=== PATIENT | female | born 1970 | race Caucasian/White ===

== ENCOUNTER 2016-12-28 15:05 | Inpatient (IN) | payer MEDICARE, MEDICAID ==
[~2016-12-28] VITALS: Ht 154.9 cm; Wt 49.4 kg
[2016-12-29 13:30] VITALS: BP 96/65
[2016-12-29] MEDS ORDERED: Z GUARD REMEDY PASTE 57 GM TUBE TOP PRN (13:45)
[2016-12-29] MEDS ORDERED: LACT-215 PO (13:53)
[2016-12-29] MEDS ORDERED: FOLI1TAB16 PO (13:53)
[2016-12-29] MEDS ORDERED: MAG30ORA2 PO (13:53)
[2016-12-29] MEDS ORDERED: LEVA1.257 NEB (13:53)
[2016-12-29] MEDS ORDERED: CALC1SOL2 PO (13:53)
[2016-12-29] MEDS ORDERED: METR-105 PO (13:53)
[2016-12-29] MEDS ORDERED: ACET-73 PO (13:53)
[2016-12-29] MEDS ORDERED: ENOX40DI9 SQ (13:53)
[2016-12-29] MEDS ORDERED: LORA1TAB PO (13:53)
[2016-12-29] MEDS ORDERED: THIA100T13 PO (13:53)
[2016-12-29 16:00] VITALS: BP 100/69
[2016-12-29] MEDS ORDERED: LORAZEPAM 1 MG TABLET PO PRN (16:45)
[2016-12-29] MEDS ORDERED: MAG HYDROX/AL HYDROX/SIMETH 30 ML LIQUID UDC PO PRN (16:45)
[2016-12-29] MEDS ORDERED: LEVALBUTEROL HCL 1.25 MG/0.5 ML NEB NEB PRN (16:45)
[2016-12-29] MEDS ORDERED: LEVALBUTEROL HCL NEB 0.63 MG/3 ML NEBU NEB PRN (17:15)
[2016-12-29] MEDS: BOOST GLUCOSE CONTROL 237 ML LIQUID (VANILLA) PO SCH (17:19)
--- NOTE | 2016-12-29 18:48 | NUR ---
Pt. received from [facility] on 1400. pt vitals stable. pt ambulates with assist. goes to the bathroom on his own. On admission assessment done. mrsa swab sent to the lab and awaiting results. no signs of acute distress. seen by doctor. will continue to evaluate.
[2016-12-29 20:32] VITALS: BP 100/71
[2016-12-29] MEDS: METRONIDAZOLE 500 MG TABLET PO SCH (21:13)
[2016-12-29] MEDS: ENOXAPARIN SODIUM 40 MG/0.4 ML DISP.SYRIN SQ SCH (21:15)
[2016-12-30] MEDS: METRONIDAZOLE 500 MG TABLET PO SCH ×3 (06:44→21:00)
[2016-12-30 07:47] LABS: CREATININE 0.8 mg/dL (0.6-1.3); MAGNESIUM 1.7 mg/dL (1.8-2.4); PHOSPHOROUS 6.3 mg/dL (2.5-4.9); POTASSIUM 3.3 mmol/L (3.5-5.1)
[2016-12-30 08:00] VITALS: BP 96/67
[2016-12-30] MEDS: BOOST GLUCOSE CONTROL 237 ML LIQUID (VANILLA) PO SCH ×2 (08:00→15:02)
[2016-12-30 08:20] LABS: BASOPHILS # (AUTO) 0.1 K/uL (0.0-8.0); BASOPHILS % (AUTO) 0.5 % (0.0-2.0); EOSINOPHILS # (AUTO) 0.2 K/uL (0.0-0.7); EOSINOPHILS % (AUTO) 1.4 % (0.0-7.0); HEMATOCRIT 32.8 % (37-47); HEMOGLOBIN 10.7 G/DL (12.0-16.0); LYMPHOCYTES % (AUTO) 11.7 % (20.5-51.5); MEAN CORPUSCULAR HEMOGLOBIN 32.8 UUG (27.0-31.0); MEAN CORPUSCULAR HGB CONC 33 g/dL (32.0-37.0); MEAN CORPUSCULAR VOLUME 100.2 FL (81.0-99.0); MONOCYTES # (AUTO) 1.1 K/UL (0.1-1.30); MONOCYTES % (AUTO) 6.7 % (0.0-11.0); NEUTROPHILS # (AUTO) 13.3 K/UL (1.8-8.9); NEUTROPHILS % (AUTO) 79.7 % (38.5-71.5); PLATELET COUNT (AUTO) 570 K/UL (150-450); RED BLOOD CELL COUNT(AUTO) 3.27 MIL/UL (4.2-5.4); WHITE BLOOD COUNT (AUTO) 16.7 K/UL (4.0-11.2)
[2016-12-30] MEDS: THIAMINE HCL 100 MG TABLET PO SCH (11:37)
[2016-12-30] MEDS: FOLIC ACID 1 MG TABLET PO SCH (11:37)
[2016-12-30] MEDS: CALCITRIOL 0.25 MCG CAPSULE PO SCH (11:38)
[2016-12-30 12:34] LABS: BAND % (MANUAL) 3 % (0-10); EOSINOPHILS % (MANUAL) 1 % (0-8); LYMPHOCYTES % (MANUAL) 11 % (20-40); MONOCYTES % (MANUAL) 5 % (2-10); NEUTROPHILS % (MANUAL) 80 % (42-75)
[2016-12-30 20:37] VITALS: BP 107/73
[2016-12-30] MEDS: ENOXAPARIN SODIUM 40 MG/0.4 ML DISP.SYRIN SQ SCH (20:43)
[2016-12-30] MEDS: ACETAMINOPHEN ES 500 MG TABLET PO PRN (21:49)
[2016-12-31] MEDS: METRONIDAZOLE 500 MG TABLET PO SCH ×3 (06:46→21:36)
[2016-12-31] MEDS: BOOST GLUCOSE CONTROL 237 ML LIQUID (VANILLA) PO SCH ×3 (08:00→17:00)
--- NOTE | 2016-12-31 08:00 | NUR ---
Received patient up in bed, awake, verbally responsive, coherent, not in any form of acute distress. No complain of pain or any discomfort. Environmental check for safety done. Call light placed within reach.
[2016-12-31] MEDS: THIAMINE HCL 100 MG TABLET PO SCH (08:20)
[2016-12-31] MEDS: CALCITRIOL 0.25 MCG CAPSULE PO SCH (08:21)
[2016-12-31] MEDS: FOLIC ACID 1 MG TABLET PO SCH (08:21)
--- NOTE | 2016-12-31 13:00 | NUR ---
Notified Dr. Duffy regarding positive result of MRSA of nares with order to start bactroban Q12hrs x 5 days. Order carried out. Patient made aware.
--- NOTE | 2016-12-31 19:00 | NUR ---
Patient remains alert, verbally responsive, coherent, afebrile, not in any form of acute distress. She denies any pain or discomfort. Assisted to her needs. Call light placed within reach. Endorsed to tube machine operator nurse accordingly.
--- NOTE | 2016-12-31 20:03 | NUR ---
Bathroom light not functioning properly in patients room. Engineering called. Patient refuses to relocate to a new room stating "I don't want to move to another room just because my light isn't working right. There's enough light for what I need to do." Will endorse to morning shift. Will continue to monitor.
[2016-12-31 20:56] VITALS: BP 104/73
[2016-12-31] MEDS ORDERED: MUPIROCIN 2% OINT 22 GM TUBE NS SCH (21:00)
[2016-12-31] MEDS: MUPIROCIN 2% OINT 22 GM TUBE NS SCH (21:43)
[2016-12-31] MEDS: ENOXAPARIN SODIUM 40 MG/0.4 ML DISP.SYRIN SQ SCH (21:44)
[2017-01-01] MEDS: METRONIDAZOLE 500 MG TABLET PO SCH ×3 (06:42→21:01)
--- NOTE | 2017-01-01 07:05 | NUR ---
Patient received from sql developer, resting comfortably in bed. No signs of acute distress noted, respirations even and unlabored. VS WNL, no pain verbalized at this time. No verbalized needs at this time. Safety and fall precautions maintained. Call light within reach.
[2017-01-01 07:22] VITALS: BP 94/61
[2017-01-01] MEDS: FOLIC ACID 1 MG TABLET PO SCH (08:49)
[2017-01-01] MEDS: THIAMINE HCL 100 MG TABLET PO SCH (08:49)
[2017-01-01] MEDS: CALCITRIOL 0.25 MCG CAPSULE PO SCH (08:49)
[2017-01-01] MEDS: MUPIROCIN 2% OINT 22 GM TUBE NS SCH ×2 (08:50→20:53)
[2017-01-01] MEDS: BOOST GLUCOSE CONTROL 237 ML LIQUID (VANILLA) PO SCH ×2 (08:50→17:15)
--- NOTE | 2017-01-01 19:30 | NUR ---
RECEIVED PATIENT AWAKE, ALERT AND ORIENTED X3 IN NAD AT THIS TIME. C/O ACHING LOWER BACK PILLOWS UNDER KNEES TO HELP SUPORT. TYLENOL GIVEN WITH RELIEF AT 2100. NO SIGNS OF ASPIRATION NOTED. RESPIRATIONS EVEN AND SYMMETRICAL. NO RESPIRATORY DISTRESS NOTED. TRHOAT IS SORE S/P INTUBATION AT [facility]. ENCOURAGED COOL DRINKS TO FEEL BETTER. ALL NEEDS MET. SAFETY AND COMFORT MAINTAINED. CALL LIGHT WITHIN REACH AAT. INSTRUCTED TO CALL RN WITH EACH TIME SHE GETS OOB TO TOILET FOR STANDBY ASSIST. PATIENT WITH GOOD UNDERSTANDING AND VERBALLY AGREES TO THIS.PREVENTION OF FALLS MAINTAINED.
[2017-01-01 20:11] VITALS: BP 106/69
[2017-01-01] MEDS: ENOXAPARIN SODIUM 40 MG/0.4 ML DISP.SYRIN SQ SCH (20:49)
[2017-01-01] MEDS: ACETAMINOPHEN ES 500 MG TABLET PO PRN (20:54)
--- NOTE | 2017-01-02 06:00 | NUR ---
PATIENT SLEPT WELL TONIGHT WITHOUT C/O RESPIRATORY DISTRESS. C/O LBP X1, RELIEVED WITH TYLENOL. MAINTAINED ON CONTACT ISOLATION FOR MRSA IN NARES.FREE FROM INJURY THIS SHIFT. COMFORT AND SAFETY MAINTAINED. CALL LIGHT WITHIN REACH AAT. INSTRUCTED PATIENT TO NOT GET OOB BY SELF, WITHOUT HELP FROM NURSE TO THE TOILET. PATIENT VERBALIZED GOOD UNDERSTANDING
[2017-01-02] MEDS: METRONIDAZOLE 500 MG TABLET PO SCH ×3 (06:30→21:35)
[2017-01-02 07:39] LABS: BILIRUBIN,TOTAL 0.5 mg/dL (0.2-1.0); CREATININE 0.7 mg/dL (0.6-1.3); MAGNESIUM 1.8 mg/dL (1.8-2.4); PHOSPHOROUS 5.8 mg/dL (2.5-4.9); POTASSIUM 3.3 mmol/L (3.5-5.1); TOTAL PROTEIN, SERUM 6.7 g/dL (6.4-8.2)
[2017-01-02 08:00] VITALS: BP 115/85
[2017-01-02 08:07] LABS: HEMATOCRIT 31.6 % (37-47); HEMOGLOBIN 10.8 G/DL (12.0-16.0); MEAN CORPUSCULAR HEMOGLOBIN 34.3 UUG (27.0-31.0); MEAN CORPUSCULAR HGB CONC 34 g/dL (32.0-37.0); MEAN CORPUSCULAR VOLUME 100.8 FL (81.0-99.0); PLATELET COUNT (AUTO) 525 K/UL (150-450); RED BLOOD CELL COUNT(AUTO) 3.14 MIL/UL (4.2-5.4)
[2017-01-02 08:11] LABS: WHITE BLOOD COUNT (AUTO) 10.4 K/UL (4.0-11.2)
[2017-01-02] MEDS: BOOST GLUCOSE CONTROL 237 ML LIQUID (VANILLA) PO SCH ×2 (08:21→17:15)
[2017-01-02] MEDS: THIAMINE HCL 100 MG TABLET PO SCH (08:22)
[2017-01-02] MEDS: FOLIC ACID 1 MG TABLET PO SCH (08:22)
[2017-01-02] MEDS: CALCITRIOL 0.25 MCG CAPSULE PO SCH (08:22)
[2017-01-02] MEDS: MUPIROCIN 2% OINT 22 GM TUBE NS SCH ×2 (08:22→21:35)
[2017-01-02 09:09] LABS: BAND % (MANUAL) 1 % (0-10); BASOPHILS % (MANUAL) 1 % (0-2); EOSINOPHILS % (MANUAL) 4 % (0-8); LYMPHOCYTES % (MANUAL) 15 % (20-40); METAMYELOCYTES % 1 % (0-1); MONOCYTES % (MANUAL) 4 % (2-10); NEUTROPHILS % (MANUAL) 74 % (42-75)
--- NOTE | 2017-01-02 09:10 | NUR ---
RECEIVED PATIENT RESTING COMFORTABLE IN BED. NO S/S OF DISTRESS. NO COMPLAINTS OF PAIN OR DISCOMFORT AT THIS TIME. CALL LIGHT WITHIN REACH. CONTACT ISOLATION OBSERVED.
[2017-01-02] MEDS ORDERED: POTASSIUM CHLORIDE 20 MEQ TAB.PRT.SR PO ONE (09:45)
--- NOTE | 2017-01-02 11:00 | NUR ---
PATIENT TOLERATED BREAKFAST WELL. NO SCHEDULE FOR THERAPY TODAY. PATIENT DID SMALL EXERCISES AT BEDSIDE. OFFERED TO MOVE TO PRIVATE ROOM BUT REFUSED.
[2017-01-02] MEDS: ACETAMINOPHEN ES 500 MG TABLET PO PRN (18:50)
--- NOTE | 2017-01-02 19:30 | NUR ---
Report received from LUZ Tee. Seen patient in high walker's position w/ at the bedside. Pt is pleasant and alert x 4, ambulates independently in the bathroom, advice to call for assistance if its needed, verbalized understanding.Assessment done, no significant issues, denies any pain.Reddened face observed (hx of psoriasis).Pt mentioned she had issues w/ swallowing due to intubation prior to admission, however she mentioned she was able to eat good earlier w/ no problem, drinks plenty of fluids accdg to her.
[2017-01-02 20:00] VITALS: BP 114/85
[2017-01-02] MEDS: ATORVASTATIN 20 MG TABLET PO SCH (21:00)
[2017-01-02] MEDS: ENOXAPARIN SODIUM 40 MG/0.4 ML DISP.SYRIN SQ SCH (21:38)
[2017-01-02] MEDS ORDERED: ATORVASTATIN 20 MG TABLET ONE (22:08)
[2017-01-03] MEDS: METRONIDAZOLE 500 MG TABLET PO SCH ×3 (06:46→21:09)
[2017-01-03 07:14] LABS: BASOPHILS # (AUTO) 0.1 K/uL (0.0-8.0); EOSINOPHILS # (AUTO) 0.5 K/uL (0.0-0.7); EOSINOPHILS % (AUTO) 4.3 % (0.0-7.0); HEMOGLOBIN 10.3 G/DL (12.0-16.0); LYMPHOCYTES # (AUTO) 1.4 K/UL (0.8-4.8); LYMPHOCYTES % (AUTO) 13.1 % (20.5-51.5); MEAN CORPUSCULAR HEMOGLOBIN 32.9 UUG (27.0-31.0); MEAN CORPUSCULAR HGB CONC 33 g/dL (32.0-37.0); MEAN CORPUSCULAR VOLUME 99.7 FL (81.0-99.0); MONOCYTES % (AUTO) 9.5 % (0.0-11.0); NEUTROPHILS % (AUTO) 72.1 % (38.5-71.5); PLATELET COUNT (AUTO) 579 K/UL (150-450); RED BLOOD CELL COUNT(AUTO) 3.11 MIL/UL (4.2-5.4)
--- NOTE | 2017-01-03 07:20 | NUR ---
Report to LUZ Tee.No significant issues, pt slept well. She went to restroom 3 times, with 1 BM. She drank 1 1/2 pitcher of water the entire shift.Denies any pain. Ready for PT today.
[2017-01-03 07:42] LABS: BILIRUBIN,TOTAL 0.5 mg/dL (0.2-1.0); CREATININE 0.6 mg/dL (0.6-1.3); MAGNESIUM 1.7 mg/dL (1.8-2.4); PHOSPHOROUS 6.2 mg/dL (2.5-4.9); TOTAL PROTEIN, SERUM 6.2 g/dL (6.4-8.2)
[2017-01-03 08:00] VITALS: BP 108/71
--- NOTE | 2017-01-03 08:22 | NUR ---
RECEIVED PATIENT AWAKE IN BED. NO S/S OF DISTRESS. NO COMPLAINTS AT THIS TIME
[2017-01-03] MEDS: BOOST GLUCOSE CONTROL 237 ML LIQUID (VANILLA) PO SCH ×2 (08:23→17:42)
[2017-01-03] MEDS: CALCITRIOL 0.25 MCG CAPSULE PO SCH (08:24)
[2017-01-03] MEDS: FOLIC ACID 1 MG TABLET PO SCH (08:24)
[2017-01-03] MEDS: THIAMINE HCL 100 MG TABLET PO SCH (08:24)
[2017-01-03] MEDS: MUPIROCIN 2% OINT 22 GM TUBE NS SCH ×2 (08:24→21:13)
[2017-01-03 08:29] LABS: BAND % (MANUAL) 1 % (0-10); EOSINOPHILS % (MANUAL) 2 % (0-8); LYMPHOCYTES % (MANUAL) 18 % (20-40); MONOCYTES % (MANUAL) 7 % (2-10); NEUTROPHILS % (MANUAL) 72 % (42-75)
[2017-01-03 08:56] LABS: POTASSIUM 2.8 mmol/L (3.5-5.1)
--- NOTE | 2017-01-03 09:00 | NUR ---
CRITICAL LAB VALUE FOR POTASSIUM AT 2.8 REPORTED [address] LABORATORY[address] INFOR[address]. Mike DA SILVA. ORDERED KDUR 40 MEQ NOW AND AT 14:00. FOR REPEAT POTASSIUM LEVELS AT 18:00. V/S STABLE AT. ME-80, T-98.2,BP-108/71, R-20, SPO2 AT 100
[2017-01-03] MEDS ORDERED: POTASSIUM CHLORIDE 20 MEQ TAB.PRT.SR PO ONE ×3 (09:30→19:30)
[2017-01-03] MEDS ORDERED: MAGNESIUM OXIDE 400 MG TABLET PO ONE (13:00)
--- NOTE | 2017-01-03 13:35 | NUR ---
Agriculture Science Teacher SW met with patient at [facility] to assess pt needs and provide support. The patient is a 46 year old female admitted for acute hypoxemic respiratory failure secondary to aspiration pneumonia, acute encephalopathy, with history of ETOH abuse. The patient was sitting on a chair in her room during the assessment. She was calm, pleasant, and cooperative during the interview. Per pt, she lives at home with her Jonathan Ledezma / . The patient ackowledged her condition and the need for intervention. The patient stated that she "aspirated after drinking too much, and threw up." She stated that she was admitted to the ICU in [facility] and was in the ICU for 5 days, and a total of 12 days at [facility]. The patient stated that she has strong social support from her and her friends. The patient stated that she has been drinking "forever" but then mentioned she was joking and that her drinking probably got more serious last year. She stated that alcoholism runs in her mother's side of the family. The patient stated that her goal is to complete her treatment at [facility] and then return home with her . SW provided patient with referrals for substance abuse and was referred to [facility] , [facility] , and [facility] . The patient stated that her , who is also a recovering alcoholic, will be helping her maintain her sobriety when she returns home. The patient stated that she enjoys cooking and watching cooking shows on her spare time. SW engaged in active listening and provided supportive counseling during the interview. SW will be available as needed.
--- NOTE | 2017-01-03 14:11 | NUR ---
IDT MEETING 01/03/17
[2017-01-03] MEDS ORDERED: ALBUTEROL SULFATE 1.25 MG/3 ML NEBU NEB PRN (14:45)
--- NOTE | 2017-01-03 18:50 | NUR ---
INFORMED DR. WILLAM DA SILVA OF POTASSIUM LEVELS DRAWN AT 18:00, LEVELS AT 3.3. POTASSIUM 20 MEQ PO ORDERED BY
--- NOTE | 2017-01-03 19:30 | NUR ---
RECEIVED PATIENT RESTING COMFORTABLY IN BED.FEELS BETTER TODAY.TYLENOL GIVEN FOR C/O CHRONIC LBP WITH RELIEF. PM SNACK GIVEN AND TAKEN 100%. INSTRUCTED TO CALL RN TO GET OOB TO TOILET WHEN NEEDED FOR STANDBY ASSIST. PATIENT VERBALIZES UNDERSTANDING.CALL LIGHT WITH INREACH AAT
[2017-01-03] MEDS: ATORVASTATIN 20 MG TABLET PO SCH (21:10)
[2017-01-03] MEDS: ENOXAPARIN SODIUM 40 MG/0.4 ML DISP.SYRIN SQ SCH (21:12)
[2017-01-03 21:27] VITALS: BP 116/85
--- NOTE | 2017-01-04 06:00 | NUR ---
PATIENT SLEPT WELL TONIGHT. AMBULATED TO BATHROOM THIS MORNING WITH AND WITHOUT CANE AT TIMES WITH STEADY GAIT. NO C/O PAIN OR DISCOMFORT IN LOWER BACK THIS MORNING.CALL LIGHT WITHIN REACH. SAFETY AND COMFORT CONCERNS ADDRESSED
[2017-01-04] MEDS: METRONIDAZOLE 500 MG TABLET PO SCH ×3 (06:12→21:15)
[2017-01-04 08:00] VITALS: BP 116/84
[2017-01-04] MEDS: BOOST GLUCOSE CONTROL 237 ML LIQUID (VANILLA) PO SCH ×2 (08:00→17:48)
[2017-01-04] MEDS: THIAMINE HCL 100 MG TABLET PO SCH (10:11)
[2017-01-04] MEDS: FOLIC ACID 1 MG TABLET PO SCH (10:11)
[2017-01-04] MEDS: MUPIROCIN 2% OINT 22 GM TUBE NS SCH (10:14)
[2017-01-04] MEDS: CALCITRIOL 0.25 MCG CAPSULE PO SCH (10:15)
[2017-01-04 15:56] LABS: BASOPHILS # (AUTO) 0.2 K/uL (0.0-8.0); BASOPHILS % (AUTO) 1.5 % (0.0-2.0); EOSINOPHILS # (AUTO) 0.6 K/uL (0.0-0.7); EOSINOPHILS % (AUTO) 4.4 % (0.0-7.0); HEMATOCRIT 31.9 % (37-47); HEMOGLOBIN 10.7 G/DL (12.0-16.0); LYMPHOCYTES # (AUTO) 1.6 K/UL (0.8-4.8); LYMPHOCYTES % (AUTO) 12.4 % (20.5-51.5); MEAN CORPUSCULAR HEMOGLOBIN 33.5 UUG (27.0-31.0); MEAN CORPUSCULAR HGB CONC 34 g/dL (32.0-37.0); MEAN CORPUSCULAR VOLUME 100.2 FL (81.0-99.0); MONOCYTES # (AUTO) 1.3 K/UL (0.1-1.30); MONOCYTES % (AUTO) 9.9 % (0.0-11.0); NEUTROPHILS # (AUTO) 9.4 K/UL (1.8-8.9); NEUTROPHILS % (AUTO) 71.8 % (38.5-71.5); PLATELET COUNT (AUTO) 528 K/UL (150-450); RED BLOOD CELL COUNT(AUTO) 3.18 MIL/UL (4.2-5.4); WHITE BLOOD COUNT (AUTO) 13.1 K/UL (4.0-11.2)
[2017-01-04 16:41] LABS: CREATININE 0.7 mg/dL (0.6-1.3); MAGNESIUM 1.6 mg/dL (1.8-2.4); PHOSPHOROUS 4.9 mg/dL (2.5-4.9); POTASSIUM 4.3 mmol/L (3.5-5.1)
[2017-01-04 18:02] LABS: BAND % (MANUAL) 1 % (0-10); EOSINOPHILS % (MANUAL) 5 % (0-8); LYMPHOCYTES % (MANUAL) 13 % (20-40); MONOCYTES % (MANUAL) 7 % (2-10); NEUTROPHILS % (MANUAL) 74 % (42-75)
[2017-01-04 20:26] VITALS: BP 111/80
[2017-01-04] MEDS: ENOXAPARIN SODIUM 40 MG/0.4 ML DISP.SYRIN SQ SCH (21:15)
[2017-01-04] MEDS: ATORVASTATIN 20 MG TABLET PO SCH (21:15)
[2017-01-05] MEDS: METRONIDAZOLE 500 MG TABLET PO SCH ×2 (06:36→14:12)
[2017-01-05] MEDS: BOOST GLUCOSE CONTROL 237 ML LIQUID (VANILLA) PO SCH ×2 (08:00→18:07)
--- NOTE | 2017-01-05 08:00 | NUR ---
Awake, alert, oriented x 4, calm and cooperative.
[2017-01-05 08:06] VITALS: BP 111/84
[2017-01-05 08:29] LABS: CREATININE 0.7 mg/dL (0.6-1.3); POTASSIUM 3.9 mmol/L (3.5-5.1)
[2017-01-05] MEDS: FOLIC ACID 1 MG TABLET PO SCH (09:29)
[2017-01-05] MEDS: CALCITRIOL 0.25 MCG CAPSULE PO SCH (09:29)
[2017-01-05] MEDS: THIAMINE HCL 100 MG TABLET PO SCH (09:29)
--- NOTE | 2017-01-05 14:00 | NUR ---
Lunch served after PT, per patient's request
[2017-01-05 15:55] VITALS: BP 128/86
--- NOTE | 2017-01-05 18:22 | NUR ---
Sitting on the chair comfortable, denies anxiety
--- NOTE | 2017-01-05 20:00 | NUR ---
RECEIVED PATIENT AWAKE IN BED. VSS. A/O X4. NO RESP. DISTRESS NOTED. CALL LIGHT IN REACH, ALL NEEDS ATTENDED. WILL CONTINUE TO MONITOR.
[2017-01-05 20:05] VITALS: BP 109/67
[2017-01-05] MEDS: ENOXAPARIN SODIUM 40 MG/0.4 ML DISP.SYRIN SQ SCH (20:25)
[2017-01-05] MEDS: ATORVASTATIN 20 MG TABLET PO SCH (20:25)
--- NOTE | 2017-01-06 06:35 | NUR ---
PATIENT ASLEEP. SLEPT WELL NO S/S OF PAIN OR DISCOMFORT. WILL CONTINUE TO MONITOR.
[2017-01-06] MEDS: BOOST GLUCOSE CONTROL 237 ML LIQUID (VANILLA) PO SCH ×2 (08:00→17:38)
--- NOTE | 2017-01-06 08:00 | NUR ---
Awake, up with therapy.
[2017-01-06 08:23] VITALS: BP 123/85
[2017-01-06] MEDS: THIAMINE HCL 100 MG TABLET PO SCH (09:22)
[2017-01-06] MEDS: CALCITRIOL 0.25 MCG CAPSULE PO SCH (09:22)
[2017-01-06] MEDS: FOLIC ACID 1 MG TABLET PO SCH (09:22)
[2017-01-06] MEDS: ACETAMINOPHEN 325 MG TABLET PO PRN ×2 (13:36→21:20)
--- NOTE | 2017-01-06 13:36 | NUR ---
Complaining of generalized aches. Tylenol po given. Resting after
[2017-01-06 17:00] VITALS: BP 107/80
--- NOTE | 2017-01-06 18:14 | NUR ---
Self care. Comfortable
--- NOTE | 2017-01-06 19:30 | NUR ---
Received report from LUZ Rock. Received patient in bed. Alert and verbally responsive. Able to make needs known. Denies any pain and discomfort. No acute distress. No SOB. Ambulates to bathroom independently. Environmental safety checked. Kept clean and dry. All needs attended to promptly. Call light within reach. Will continue to monitor
[2017-01-06 20:35] VITALS: BP 114/85
[2017-01-06] MEDS: ATORVASTATIN 20 MG TABLET PO SCH (21:16)
[2017-01-06] MEDS: ENOXAPARIN SODIUM 40 MG/0.4 ML DISP.SYRIN SQ SCH (21:17)
--- NOTE | 2017-01-07 07:00 | NUR ---
received report from ship pilot. Patient was taken to physical therapy upon arrival on the unit.
--- NOTE | 2017-01-07 07:01 | NUR ---
Patient slept well through out the night. No c/o pain and discomfort. No acute distress. No SOB. Kept clean and dry. Patient ambulate to the bathroom. All needs attended to promptly. Call light within reach. Will continue to monitor.
[2017-01-07 07:21] LABS: BASOPHILS % (AUTO) 0.4 % (0.0-2.0); EOSINOPHILS # (AUTO) 0.8 K/uL (0.0-0.7); EOSINOPHILS % (AUTO) 7.6 % (0.0-7.0); HEMATOCRIT 31.4 % (37-47); HEMOGLOBIN 10.7 G/DL (12.0-16.0); LYMPHOCYTES # (AUTO) 1.8 K/UL (0.8-4.8); LYMPHOCYTES % (AUTO) 16.5 % (20.5-51.5); MEAN CORPUSCULAR HEMOGLOBIN 33.8 UUG (27.0-31.0); MEAN CORPUSCULAR HGB CONC 34 g/dL (32.0-37.0); MEAN CORPUSCULAR VOLUME 99.2 FL (81.0-99.0); MONOCYTES # (AUTO) 0.9 K/UL (0.1-1.30); MONOCYTES % (AUTO) 8.2 % (0.0-11.0); NEUTROPHILS # (AUTO) 7.2 K/UL (1.8-8.9); NEUTROPHILS % (AUTO) 67.3 % (38.5-71.5); PLATELET COUNT (AUTO) 480 K/UL (150-450); RED BLOOD CELL COUNT(AUTO) 3.16 MIL/UL (4.2-5.4); WHITE BLOOD COUNT (AUTO) 10.7 K/UL (4.0-11.2)
[2017-01-07 07:27] LABS: CREATININE 0.7 mg/dL (0.6-1.3); MAGNESIUM 1.6 mg/dL (1.8-2.4); PHOSPHOROUS 6.4 mg/dL (2.5-4.9); POTASSIUM 3.8 mmol/L (3.5-5.1)
[2017-01-07 08:00] VITALS: BP 116/86
[2017-01-07] MEDS: BOOST GLUCOSE CONTROL 237 ML LIQUID (VANILLA) PO SCH ×2 (08:55→17:24)
[2017-01-07] MEDS: FOLIC ACID 1 MG TABLET PO SCH (09:45)
[2017-01-07] MEDS ORDERED: MAGNESIUM OXIDE 400 MG TABLET PO ONE (09:45)
[2017-01-07] MEDS: CALCITRIOL 0.25 MCG CAPSULE PO SCH (09:45)
[2017-01-07] MEDS: THIAMINE HCL 100 MG TABLET PO SCH (09:45)
--- NOTE | 2017-01-07 10:00 | NUR ---
Patient worked with PT and tolerated well.
--- NOTE | 2017-01-07 18:55 | NUR ---
PATIENT PARTICIPATED IN PHYSICAL THERAPY, TOLERATED WELL. PATIENT HAS NOT EXPERIENCED ANY PAIN, NO INJURIES, NO COMPLAINTS. VITALS ARE STABLE.
--- NOTE | 2017-01-07 19:30 | NUR ---
PATIENT RESTING IN BED, NO ACUTE DISTRESS, NEEDS ATTENDED. CALL LIGHT WITHIN REACH, BED ALARM ON. WILL CONTINUE TO MONITOR.
[2017-01-07 20:00] VITALS: BP 113/81
[2017-01-07] MEDS: ATORVASTATIN 20 MG TABLET PO SCH (21:29)
[2017-01-07] MEDS: ENOXAPARIN SODIUM 40 MG/0.4 ML DISP.SYRIN SQ SCH (21:32)
[2017-01-07] MEDS: ACETAMINOPHEN 325 MG TABLET PO PRN (21:59)
--- NOTE | 2017-01-08 06:00 | NUR ---
slept well tonight with minimal c/o lbp which was relieved with tylenol po. ambulates independently to bathroom with steady gait. plan is for discharge home today. patient is requesting to go home between [id number]. appears in nad at this time. call light within reach
[2017-01-08 06:52] LABS: BASOPHILS % (AUTO) 0.3 % (0.0-2.0); EOSINOPHILS # (AUTO) 0.7 K/uL (0.0-0.7); EOSINOPHILS % (AUTO) 6.9 % (0.0-7.0); HEMATOCRIT 31.7 % (37-47); HEMOGLOBIN 10.5 G/DL (12.0-16.0); LYMPHOCYTES # (AUTO) 1.6 K/UL (0.8-4.8); LYMPHOCYTES % (AUTO) 15.7 % (20.5-51.5); MEAN CORPUSCULAR HEMOGLOBIN 32.8 UUG (27.0-31.0); MEAN CORPUSCULAR HGB CONC 33 g/dL (32.0-37.0); MEAN CORPUSCULAR VOLUME 98.4 FL (81.0-99.0); MONOCYTES # (AUTO) 0.8 K/UL (0.1-1.30); MONOCYTES % (AUTO) 8.2 % (0.0-11.0); NEUTROPHILS # (AUTO) 7.2 K/UL (1.8-8.9); NEUTROPHILS % (AUTO) 68.9 % (38.5-71.5); PLATELET COUNT (AUTO) 461 K/UL (150-450); RED BLOOD CELL COUNT(AUTO) 3.22 MIL/UL (4.2-5.4); WHITE BLOOD COUNT (AUTO) 10.3 K/UL (4.0-11.2)
[2017-01-08 07:11] LABS: CREATININE 0.7 mg/dL (0.6-1.3); MAGNESIUM 1.5 mg/dL (1.8-2.4); PHOSPHOROUS 5.8 mg/dL (2.5-4.9); POTASSIUM 3.5 mmol/L (3.5-5.1)
[2017-01-08 08:00] VITALS: BP 118/88
[2017-01-08] MEDS: BOOST GLUCOSE CONTROL 237 ML LIQUID (VANILLA) PO SCH (08:00)
[2017-01-08] MEDS ORDERED: MAGNESIUM OXIDE 400 MG TABLET PO ONE (09:15)
[2017-01-08] MEDS: FOLIC ACID 1 MG TABLET PO SCH (09:24)
[2017-01-08] MEDS: CALCITRIOL 0.25 MCG CAPSULE PO SCH (09:25)
[2017-01-08] MEDS: THIAMINE HCL 100 MG TABLET PO SCH (09:25)
--- NOTE | 2017-01-08 12:05 | NUR ---
Patient discharged from unit with Jonathan. Patient received belongings return. Patient given new prescriptions. Patient to follow up with Dr. Jadiel Akins as well as receive home health. Patient given contact information for both. Patient vitals stable. Patient alert and oriented. NO noted distress. Understands discharge plan at this time.
== END 2017-01-08 12:00 | disposition home health service (06) | DRG 177 ==
PROVIDERS: ADMIT Physical Medicine & Rehabilitation Pain Medicine; ATTEND Physical Medicine & Rehabilitation Pain Medicine
DX: J69.0 Pneumonitis due to inhalation of food and vomit (principal); G92 Toxic encephalopathy; E43 Unspecified severe protein-calorie malnutrition; D68.4 Acquired coagulation factor deficiency; R19.7 Diarrhea, unspecified; F10.20 Alcohol dependence, uncomplicated; Y90.9 Presence of alcohol in blood, level not specified; L40.9 Psoriasis, unspecified; R13.10 Dysphagia, unspecified; R53.81 Other malaise; Z68.20 Body mass index [BMI] 20.0-20.9, adult; J32.9 Chronic sinusitis, unspecified; Z87.891 Personal history of nicotine dependence; L30.9 Dermatitis, unspecified; K70.10 Alcoholic hepatitis without ascites; E87.6 Hypokalemia; E83.42 Hypomagnesemia; E83.39 Other disorders of phosphorus metabolism; D50.9 Iron deficiency anemia, unspecified; D69.59 Other secondary thrombocytopenia; E88.09 Other disorders of plasma-protein metabolism, not elsewhere classified; R62.7 Adult failure to thrive; E78.5 Hyperlipidemia, unspecified; I25.2 Old myocardial infarction; M25.552 Pain in left hip; R26.9 Unspecified abnormalities of gait and mobility
CPT/HCPCS: 36415; 83735; 84100; 84132; 85025; 92526; 92610; 97110; 97112; 97116; 97161; 97530; 97535; A4663; J1650